=== PATIENT | male | born 1945 | race Caucasian/White ===

== ENCOUNTER 2017-03-21 17:31 | Inpatient (IN) | payer MEDICARE, OTHER ==
[~2017-03-21] VITALS: Ht 180.3 cm; Wt 81.3 kg
--- NOTE | ~2017-03-21 | HP ---
History And Physical [address] [place]. [address] NAME: PRICILLA LICEA III : 43 STATUS : ADM IN [facility]#: [id number] AGE: 71 ADM/REG DATE : 03/21/17 MR#: [id number] REPORT SERV DATE: 03/22/17 DICTATED BY: SEKOU AGUIRRE DATE: 03/21/17 REPORT STATUS : Draft TRANSCRIBED BY: MODL DATE: 03/21/17 DATE OF ADMISSION: 03/21/2017 CRITICAL CARE ADMISSION TIME: 1950 hours, seen in medical ICU bed 8. HISTORY OF PRESENT ILLNESS: The patient is a 71-year-old white male who was transferred from [facility] to our hospital because his physicians are here. According to the patient and the patient's , his symptoms started this morning when he got out of the bed and was somewhat short of breath. He was due for some exams today, a chest x-ray and a pulmonary function test preparation for his AICD placement next week. The reported that he had to be wheelchaired to the PFT lab. After PFTs, he has felt better. The patient reported he had developed a congestive feeling in his chest he normally gets during his heart failure. He did have productive cough of bloody-type sputum. The patient really did not have any significant fevers or chills. His temperature according to his was 96%. Of note, he was recently in [place], [place], where he went to rapid atrial fibrillation, was hospitalized for that, underwent a cardiac cath which revealed an old LAD lesion that was not stented at that time or at this time. He is treated with the goal of getting him on airplane home. This was achieved on 02/10. He came to to the hospital with shortness of breath and what sounds like another heart failure. In [place], apparently he was cardioverted three times and did not have much success with that. PCI was attempted and was unsuccessful. Ejection fraction at that time was 30%, he has not had any pulmonary embolism. PAST MEDICAL HISTORY: Significant for cataracts; hearing loss; dysrhythmias; high cholesterol; hypertension; atrial fibrillation, he has been on Eliquis use for a long time say for about 10 years; obstructive sleep apnea, on home CPAP; previous pneumonia; hemorrhoids in the past prolapse; prostate cancer diagnosed in 2012, no chemo, treated with radiation; nonischemic cardiomyopathy EF of 35% in 2016; sigmoid diverticulosis; GI bleed where he had hematochezia due to rectal telangiectases and was status post colonoscopy with ablation; hematuria treated for radiation bonds, followed by Dr. Schwartz. HOME MEDICATIONS: Included the followin. Tamsulosin 0.4 mg one capsule every day. 2. Lasix 40 mg one tablet every day. 3. Spironolactone 25 mg 12.5 mg by oral route every day. 4. Amiodarone hydrochloride 200 mg one tablet by oral route every day. 5. Ramipril 10 mg one capsule by oral route every day. 6. Coreg 25 mg one tablet by oral route two times a day. 7. Eliquis 5 mg one tablet by oral route two times a day. 8. Amlodipine 10 mg p.o. one tablet daily. 9. Atorvastatin calcium tablets 80 mg one tablet at bedtime. ALLERGIES: NO SIGNIFICANT ALLERGIES NOTED. History And Physical [address] [address] NAME: PRICILLA LICEA III : 43 STATUS : ADM IN [facility]#: [id number] AGE: 71 ADM/REG DATE : 03/21/17 MR#: [id number] REPORT SERV DATE: 03/22/17 DICTATED BY: SEKOU AGUIRRE DATE: 03/21/17 REPORT STATUS : Draft TRANSCRIBED BY: LONG DATE: 03/21/17 SOCIAL HISTORY: He is retired and for 48 years. He had previously worked in [employer] business. Does not smoke or drink. FAMILY HISTORY: Positive for father having coronary artery disease and hypertension. Father in his 80s. Mother with positive hypertension, still living at 95 years old. Two sisters, one has atrial fibrillation. PAST SURGICAL HISTORY: His past surgical history consists of tonsillectomy and cardioversion in 2013, left knee surgery with ligament repair 35 years ago, skin cancer removed from his nose on 07/22/2014, cardiac ablation for atrial fibrillation x2 in 2005, EGD and colonoscopy on 07/31/2014, prostate biopsy for prostate cancer in 2012. REVIEW OF SYSTEMS: Otherwise negative and noncontributory. No fevers or chills at this time. He does have some shortness of breath on exertion. Had marked shortness of breath when he drops into congestive heart failure. Previously, he has had pneumonia. No diabetes. No thyroid disease. PHYSICAL EXAMINATION: VITAL SIGNS: Today, his vital signs currently are stable. His blood pressure is about 120/70, he is off Levophed. Pulse is 70-80 regular, afebrile. GENERAL: The patient is awake, alert, and oriented. HEENT: Head is normocephalic. Sclerae and conjunctivae are clear. NECK: Supple. There is a right IJ in place. CHEST: Decreased breath sounds. Some crackles at the bases. CARDIAC: S1, S2 regular. I could not hear any murmurs. PMI is laterally displaced. ABDOMEN: Soft at this time, nontender, and nonswollen. EXTREMITIES: No clubbing, cyanosis, or edema. NEUROLOGIC: Cranial nerves 2I through 12 are intact. Deep tendon reflexes are normal. IMAGING: His chest x-ray taken this morning well before his admission showed infiltrate in the left lower lobe and some in the right upper lobe. Signs of pulmonary vascular congestion and left parietal atelectasis have improved. LABORATORY DATA: These were taken at [facility] this afternoon. Sodium was 141, potassium 3.5, chloride 107, CO2 of 23, BUN 23, creatinine 1.5, glucose 193. Hemoglobin and hematocrit showed 14.5 and 44.0, white count 69675 white count later 14928. Arterial blood gas at 1700 hours, pH 7.425, pCO2 of 39.2, PO2 of 113.4, was on 75% oxygen on BiPAP. His magnesium was 1.8, calcium 7.9, lactic acid 1.2, alkaline phosphatase 1.0, CPK 0.67, total protein 6.9, albumin 3.2, globulin 3.7. INR 1.3. H and H as noted. Platelet count was 201,000. Blood cultures are pending. Note is made from [facility] stay, put on the septic protocol says his white count is 16,000, thought to possibly have pneumonia. He was not given a 3 L bolus because of his history of heart failure. Placed on BiPAP. Antibiotics Rocephin and Zithromax were started. He required some slight amount of Levophed. Currently, the patient is awake, alert, and oriented, in no acute distress. EKG review pending. History And Physical [address] [address] NAME: PRICILLA LICEA III : 43 STATUS : ADM IN PAT#: [id number] AGE: 71 ADM/REG DATE : 03/21/17 MR#: [id number] REPORT SERV DATE: 03/22/17 DICTATED BY: SEKOU AGUIRRE DATE: 03/21/17 REPORT STATUS : Draft TRANSCRIBED BY: MODL DATE: 03/21/17 IMPRESSION: 1. Hypoxic respiratory failure secondary to systolic heart failure. 2. Hemoptysis secondary to systolic heart failure. 3. Elevated white count. 4. Slightly elevated troponin, probably a type 2 strain. 5. History of prior heart failure and atrial fibrillation with a low ejection fraction. PLAN: Plan will be continue BiPAP. Continue the antibiotics for now. Await blood cultures. Check procalcitonin and BNP level. We will notify fish hatchery supervisor to see the patient in the morning and continue gentle diuresis. Chest x-ray as noted. RP/TONEYL Sekou Aguirre M.D. / [id number] CC: MD Abby Figueroa M.D.
--- NOTE | ~2017-03-21 | IDS ---
Interim Discharge Summary [facility] [address] [place]. [address] NAME: PRICILLA LICEA III : 43 STATUS : ADM IN PAT#: [id number] AGE: 71 ADM/REG DATE : 03/21/17 MR#: [id number] REPORT SERV DATE: 03/25/17 DICTATED BY: CASSY PALAFOX DATE: 03/25/17 REPORT STATUS : Draft TRANSCRIBED BY: MODL DATE: 03/25/17 ADMISSION DATE: 03/21/2017 DISCHARGE DATE: DATE OF INTERIM SUMMARY: 03/25/2017. INTERIM DIAGNOSES: 1. Acute hypoxic respiratory failure. 2. Hospital-acquired pneumonia. 3. Septic shock. 4. Cardiogenic pulmonary edema. 5. Acute on chronic heart failure. 6. Chronic renal failure. 7. Atrial fibrillation with rapid ventricular response. 8. Obstructive sleep apnea. ICU COURSE: Please see dictated H and P for full patient presentation and history. In brief summary, the patient is a 71-year-old white gentleman with a past medical history of chronic systolic heart failure, chronic atrial fibrillation, as well as asthma who was admitted to the hospital with increasing shortness of breath as well as blood tinged sputum several days ago. The patient was scheduled to get an AICD placed next week for his atrial fibrillation, but is hospitalized now and we will have that postponed. The patient initially was felt to have congestive heart failure and was transferred over here after presenting to an outside hospital for further management. On arrival here, the patient appeared clinically to have more of a pneumonia picture than heart failure, and in fact, began having fevers on the night of admission with worsening respiratory failure requiring a broadening of his antibiotics and BiPAP support. 1. Acute hypoxic respiratory failure. At this point, we feel like his respiratory failure has mainly been in part due to likely pneumonia. Sputum cultures have been negative, but his procalcitonin became elevated and he was febrile on arrival here to our facility. He was in the hospital for about four days last month for atrial fibrillation, so I am currently covering him for hospital-acquired pneumonia with Zosyn. He was on vancomycin for several days, but I stopped that yesterday as he has no evidence of MRSA. He remains on antibiotics at this time. He has needed intermittent BiPAP support. He sleeps with it nightly because he does have obstructive sleep apnea. He is also on bronchodilators as he had PFTs recently that showed some moderate airway obstruction. He has no smoking history with no history of COPD, but he does note history of asthma as a child. He is not on bronchodilators at home. The patient was off BiPAP for the most part yesterday, but then yesterday evening had acute episode of worsening shortness of breath following a session with physical therapy. He is placed back on BiPAP and remained on that overnight. This morning, he has been transitioned over to high-flow nasal cannula and states that his breathing feels a little better. Chest x-ray this morning looks fairly dramatically worse with diffuse bilateral airspace disease and bilateral effusions. I suspect that this acute worsening may be secondary to cardiogenic pulmonary edema. I am transitioning him from p.o. Lasix to IV Lasix today in an attempt to improve his diuresis. Again, we used Interim Discharge Summary [address] [address] NAME: PRICILLA LICEA III : 43 STATUS : ADM IN PAT#: [id number] AGE: 71 ADM/REG DATE : 03/21/17 MR#: [id number] REPORT SERV DATE: 03/25/17 DICTATED BY: CASSY PALAFOX DATE: 03/25/17 REPORT STATUS : Draft TRANSCRIBED BY: LONG DATE: 03/25/17 BiPAP support if needed and would have a low threshold to intubate him if his respiratory status worsens. 2. Septic shock. The patient is on Levophed for several days. He has been off that now for over 24 hours. We will watch his blood pressure closely with increased diuresis today. He has also been restarted on his home beta-samanta. 3. Chronic renal failure. The patient's creatinine has remained right around his baseline. We will watch it with his increased diuresis. 4. Atrial fibrillation with rapid ventricular response. Again, patient was scheduled for AICD placement next week. This will be put on hold for now. He was requiring IV amiodarone for atrial fibrillation with RVR, but has since been transitioned over to p.o. amiodarone and is currently rate controlled on that. Cardiology is following along with the patient. He also continues on his beta-samanta and his Aldactone for his chronic heart failure. Currently, holding his JUDITH inhibitor secondary to the fact that he was recently in shock. If his blood pressure remained stable, we can restart this in the next day or two as well. 5. The patient remains in the ICU. He still is quite tenuous and has a high probability of sudden clinically significant or life-threatening deterioration in his condition. The oncoming shade cloth finisher will take over tomorrow. Please call if you have any questions. SRINIVAS/LONG Cassy Palafox MD / [id number] CC: MD Abby Figueroa M.D.
--- NOTE | ~2017-03-21 | DS ---
Discharge Summary [address] [place]. [address] NAME: PRICILLA LICEA III : 43 STATUS : DIS IN PAT#: [id number] AGE: 71 ADM/REG DATE : 03/21/17 MR#: [id number] REPORT SERV DATE: 04/05/17 DICTATED BY: JR. BARAJAS WILLIAM JOHN DATE: 04/04/17 REPORT STATUS : Draft TRANSCRIBED BY: MODL DATE: 04/04/17 ADMISSION DATE: 03/21/2017 DISCHARGE DATE: 04/04/2017 DISCHARGE DIAGNOSES: Include: 1. Healthcare-acquired pneumonia. 2. Acute hypoxic respiratory failure. 3. Septic shock, which is resolved. 4. Chronic kidney disease, stage 3. 5. Atrial fibrillation with rapid ventricular response. 6. Cardiogenic pulmonary edema. 7. Acute on chronic systolic heart failure with ejection fraction 30% to 35%. 8. Obstructive sleep apnea. OPERATIONS, PROCEDURES, AND TREATMENTS: Include: 1. Intensive Care Unit monitoring on BiPAP ventilation, intermittently. 2. Chest x-ray, done 03/22/2017, which showed new left upper extremity PICC line with interval removal of right subclavian with continued bilateral perihilar infiltrates with edema, probable trace pleural effusion. 3. Chest x-ray, done 03/25/2017, which showed increased diffuse bilateral edema and/or infiltrate. 4. Chest x-ray, done 03/26/2017, which showed persistent, but improving venous congestion, probable small bilateral pleural effusions. 5. Chest x-ray, done 03/27/2017, which showed persistent perihilar airspace disease. 6. Chest x-ray, done 03/28/2017, which showed no acute cardiopulmonary disease. 7. Chest x-ray, done 03/29/2017, which showed mild worsening perihilar edema. 8. Chest x-ray, done 03/30/2017, which showed diffuse bilateral edema or infiltrate. 9. Chest x-ray, done 04/01/2017, which showed diffuse bilateral edema. 10.Chest x-ray, done 04/02/2017, showed left basilar infiltrate with small bilateral pleural effusions. 11.Spirometry with DLCO, which showed at least moderate degree of large airway obstruction, possible lung restriction with mild reduction of DLCO. DISCHARGE MEDICATIONS: Include: 1. Apixaban 5 mg orally twice a day. 2. Lipitor 80 mg orally daily. 3. Amiodarone 400 mg orally twice a day for two weeks, then 200 mg twice a day. 4. Coreg 25 mg twice a day. 5. Folate 1 mg orally at bedtime. 6. Flomax 0.4 mg daily. 7. Albuterol high-flow aerosol every four hours while awake. HOSPITAL COURSE: The patient was a 71-year-old male transferred from [facility] on 03/21/2017, to the Intensive Care Unit. According to the patient and his , his symptoms started the morning of presentation when he got out of bed and was somewhat short of breath. He was due for an exam on that day, chest x-ray and pulmonary function studies in Discharge [address] [address] NAME: PRICILLA LICEA III : 43 STATUS : DIS IN PAT#: [id number] AGE: 71 ADM/REG DATE : 03/21/17 MR#: [id number] REPORT SERV DATE: 04/05/17 DICTATED BY: JR. BARAJAS WILLIAM JOHN DATE: 04/04/17 REPORT STATUS : Draft TRANSCRIBED BY: LONG DATE: 04/04/17 preparation for AICD placement the following week. Apparently, he was so short of breath, he had to be taken by wheelchair with a congested feeling like when he has heart failure. Of note, he was recently in [place], [place], where he went into atrial fibrillation with rapid response, was hospitalized, had a catheterization at that time, had an old LAD lesion that was not stented at that time. The goal was to get the patient stable enough to fly back to his home physicians. For details of the initial exam and presentation, please see Dr. Aguirre's excellent dictated history and physical. The patient was admitted to the Intensive Care Unit. He was intermittently on BiPAP ventilation. It was felt his symptoms were a combination of heart failure and pneumonia. The patient completed the course of Zosyn and vancomycin and was slowly diuresed and followed by Cardiology. The plan was for the patient to be discharged to follow up with Dr. Nelson as scheduled for AICD placement. The patient is currently off oxygen. He had an ambulatory desaturation study this morning, which showed no need for oxygen at this time. As the patient's septic shock has resolved, he was on pressor support for some time. As the patient's chronic kidney disease stage 3, this is stable. His BUN and creatinine at discharge are 20 and 1.6 respectively. Regarding atrial fibrillation with rapid response, the patient was placed on high-dose amiodarone load, which will be weaned off until his followup with Dr. Nelson this week. Regarding the obstructive sleep apnea, the patient has CPAP at home and has worn this for many years. The patient will be discharged home today, 04/04/2017. He will follow up with Dr. Nelson as scheduled on 04/07/2017, and will follow up with his primary care physician, Dr. Abby Montoya. For discharge exam and laboratory, please see daily progress note. This discharge took greater than 30 minutes for the patient encounter, coordination of care, and documentation. DISCHARGE DIET: Will be a 2 g sodium, low-cholesterol diet. ACTIVITY: As tolerated. WLORETO/LONG Regan Barajas Jr, MD Discharge Summary [address] [address] NAME: PRICILLA LICEA III : 43 STATUS : DIS IN PAT#: [id number] AGE: 71 ADM/REG DATE : 03/21/17 MR#: [id number] REPORT SERV DATE: 04/05/17 DICTATED BY: JR. BARAJAS WILLIAM JOHN DATE: 04/04/17 REPORT STATUS : Draft TRANSCRIBED BY: LONG DATE: 04/04/17 / [id number] CC: MD Abby Hughes M.D.
--- NOTE | ~2017-03-21 | CN ---
Consultation Report [address] [place]. [address] NAME: PRICILLA LICEA III : 43 STATUS : ADM IN PAT#: [id number] AGE: 71 ADM/REG DATE : 03/21/17 MR#: [id number] REPORT SERV DATE: 03/22/17 DICTATED BY: REGAN ANTHONY DATE: 03/21/17 REPORT STATUS : Draft TRANSCRIBED BY: MODL DATE: 03/21/17 CARDIOLOGY CONSULTATION DATE OF CONSULTATION: 03/21/2017 [facility] PHYSICIAN: Dr. Russo. REASON FOR CONSULTATION: History of congestive heart failure. HISTORY OF PRESENT ILLNESS: Mr. Licea is a 71-year-old man with a history of atrial fibrillation and cardiomyopathy with coronary artery disease. He reported increasing shortness of breath with cough productive of bloody sputum with [facility]. He is found to have pneumonia and sepsis and was transferred here. He is on BiPAP and feeling better. He denied any chest pain or tightness. He had some mild chronic edema, again cough with bloody sputum. Denies any fevers. Reports compliance with his medications, although history is a little bit difficult to obtain with his dyspnea and being on BiPAP. REVIEW OF SYSTEMS: As per the history of present illness. Ten other systems are negative, noncontributory, not available. PAST MEDICAL HISTORY: 1. Atrial fibrillation with previous cardioversions. 2. Cardiomyopathy, variable EF around 35%. 3. Coronary artery disease with reported PCI in an outside facility in January. 4. Hypertension. 5. Hypercholesterolemia. 6. Chronic anticoagulation. FAMILY HISTORY: Positive for heart disease, although not typically early. HOME MEDICINES: Current list is pending. PHYSICAL EXAMINATION: VITAL SIGNS: Heart rate is 87, blood pressure 124/60. GENERAL: The patient is pleasant, elderly white male, comfortable on BiPAP. NECK: Supple. Jugular venous pressure is minimally elevated, on BiPAP. CARDIOVASCULAR: Irregular. Distant heart sounds with coarse breath sounds. No gallop suggested. LUNGS: Coarse breath sounds with crackles mostly on the right upper and lower lobes. ABDOMEN: Soft, nontender, nondistended. EXTREMITIES: Minimal edema. Consultation Report [address] [place]. [address] NAME: PRICILLA LICEA III : 43 STATUS : ADM IN PAT#: [id number] AGE: 71 ADM/REG DATE : 03/21/17 MR#: [id number] REPORT SERV DATE: 03/22/17 DICTATED BY: REGAN ANTHONY DATE: 03/21/17 REPORT STATUS : Draft TRANSCRIBED BY: LONG DATE: 03/21/17 DATA: Labs from outside hospital showed an elevated white count. Creatinine is 1.5. Chest x-ray shows right lower and upper lobe infiltrates with mild vascular congestion. White blood cell count at the outside facility was 15. IMPRESSION: 1. Probable pneumonia with respiratory failure, currently being supported with BiPAP. 2. Atrial fibrillation chronic, on chronic anticoagulation. 3. Chronic congestive heart failure. 4. Chronic kidney disease. 5. Coronary artery disease with history of myocardial infarction. Variable ejection fraction around 35%. 6. Hypertension. 7. Hypercholesterolemia. RECOMMENDATIONS: Mr. Licea really has just gotten here. He is on a BiPAP and he had been on Levophed for pressure support. I do not think this is going to be a primary cardiac event, but we will have to support his cardiac status through his hospitalization. His troponin was borderline elevated, not surprising in the setting of sepsis. We will repeat troponin in the morning along with an EKG. Thank you for this consultation. Please contact me if you have any further questions. I will notify Dr. Russo of his admission. WO/LONG Regan Anthony M.D., Ph.D, F.A.C.C. / [id number] CC: MD Abby Figueroa M.D.
[~2017-03-21 17:31] MED LIST: ALTACE10 MG PO; ASA5GR PO; ASAB PO; CENTRUM TAB1 TAB PO; CIALIS10 MG PO; CINNAMON PO; CINNAMONPO PO; CORDARONE PO; COREG12 PO; COREG25 PO; DILT-XR240 MG PO; ELIQUIS 5 MG TAB5 MG PO; FERROUS SULF325 M1 PO; FIBER TABS PO; FIBERCON PO; FLOMAX4 PO; L40 PO; LAN125 PO; LEVAQUIN750 MG PO; LIPITOR80 MG PO; MINOCIN100 PO; NORV10 PO; PRAVACHOL80 MG; PRAVACHOL80 MG PO; SPIRO25 PO; SYMBICORT 160/41 INH INH; [UNRECOGNIZED DRUG - OTHER]
[2017-03-21] MEDS ORDERED: LIPITOR80 MG PO (22:41)
[2017-03-21] MEDS ORDERED: SPIRO25 PO (22:41)
[2017-03-21] MEDS ORDERED: L40 PO (22:41)
[2017-03-21] MEDS ORDERED: COREG25 PO (22:41)
[2017-03-21] MEDS ORDERED: FLOMAX4 PO (22:41)
[2017-03-21] MEDS ORDERED: ELIQUIS 5 MG TAB5 MG PO (22:42)
[2017-03-21] MEDS ORDERED: CORDARONE PO (22:42)
[2017-03-21] MEDS ORDERED: FIBER PO (22:42)
[2017-03-21] MEDS ORDERED: NORV10 PO (22:42)
[2017-03-21] MEDS ORDERED: ALTACE10 MG PO (22:42)
[2017-03-21] MEDS ORDERED: CINNAMONPO PO (22:42)
[2017-03-21] MEDS ORDERED: BION TEARS OPH (22:43)
[2017-03-22 04:28] LABS: BASOPHILS 0.1 %; BASOPHILS ABSOLUTE 0.01 10/3/uL (0.0-0.16); EOSINOPHILS 0 %; HEMATOCRIT 41.5 % (40.0-51.0); HEMOGLOBIN 13.5 g/dL (13.6-17.8); IMMATURE GRANULOCYTES 0.4 %; IMMATURE GRANULOCYTES ABSOLUTE 0.05 10/3/uL (0.0-0.11); LYMPHOCYTES 3.9 %; LYMPHOCYTES ABSOLUTE 0.45 10/3/uL (0.67-4.30); MANUAL DIFF NO %; MEAN CORPUS HGB CONC 32.5 g/dL (32.0-36.0); MEAN CORPUSCULAR HEMOGLOB 30.1 pg (26.0-34.0); MEAN CORPUSCULAR VOLUME 92.4 fL (80-100); MEAN PLATELET VOLUME 11.7 fL (9.2-13.0); MONOCYTES ABSOLUTE 1.15 10/3/uL (0.21-1.20); NEUTROPHILS 85.6 %; NEUTROPHILS ABSOLUTE 9.89 10/3/uL (2.02-8.40); PLATELET COUNT 213 10/3/uL (150-400); RBC DISTRIBUTION WIDTH 15.8 % (12.0-16.0); RED CELL COUNT 4.49 10/6/uL (4.7-6.1); WHITE BLOOD CELLS 11.6 10/3/uL (4.5-10.5)
[2017-03-22 04:48] LABS: BUN (BLOOD UREA NITROGEN) 21 MG/DL (6-23); CHLORIDE, SERUM 106 MMOL/L (96-112); CO2 (CARBON DIOXIDE) 29 MMOL/L (24-34); CREATININE 1.49 MG/DL (0.70-1.30); GFR AFRICAN AMERICAN 53 ML/MIN (>=60); GFR NON AFRICAN AMERICAN 46 ML/MIN (>=60); POTASSIUM, SERUM 3.3 MMOL/L (3.5-5.3); SODIUM, SERUM 142 MMOL/L (135-148)
[2017-03-22 04:51] LABS: GLUCOSE, SERUM 111 MG/DL (60-99)
[2017-03-22 05:20] LABS: B NATRIURETIC PEPTIDE (BNP) 1305.3 PG/ML (< 100.0)
[2017-03-22 10:12] LABS: GLYCOHEMOGLOBIN (HbA1c) 6.1 % (4.7-6.1)
[2017-03-22 17:29] LABS: BUN (BLOOD UREA NITROGEN) 21 MG/DL (6-23); CALCIUM, SERUM 7.8 MG/DL (8.5-10.4); CHLORIDE, SERUM 106 MMOL/L (96-112); CO2 (CARBON DIOXIDE) 27 MMOL/L (24-34); CREATININE 1.49 MG/DL (0.70-1.30); GFR AFRICAN AMERICAN 53 ML/MIN (>=60); GFR NON AFRICAN AMERICAN 46 ML/MIN (>=60); POTASSIUM, SERUM 3.7 MMOL/L (3.5-5.3); SODIUM, SERUM 140 MMOL/L (135-148)
[2017-03-22 17:30] LABS: GLUCOSE, SERUM 136 MG/DL (60-99); PHOSPHORUS, SERUM 1.6 MG/DL (2.5-4.5)
[2017-03-23 04:24] LABS: BASOPHILS 0.2 %; BASOPHILS ABSOLUTE 0.02 10/3/uL (0.0-0.16); EOSINOPHILS 0 %; HEMOGLOBIN 12.5 g/dL (13.6-17.8); IMMATURE GRANULOCYTES 0.4 %; IMMATURE GRANULOCYTES ABSOLUTE 0.05 10/3/uL (0.0-0.11); LYMPHOCYTES 9.6 %; LYMPHOCYTES ABSOLUTE 1.11 10/3/uL (0.67-4.30); MEAN CORPUS HGB CONC 32.9 g/dL (32.0-36.0); MEAN CORPUSCULAR VOLUME 91.3 fL (80-100); MEAN PLATELET VOLUME 11.4 fL (9.2-13.0); MONOCYTES 11.5 %; MONOCYTES ABSOLUTE 1.33 10/3/uL (0.21-1.20); NEUTROPHILS 78.3 %; NEUTROPHILS ABSOLUTE 9.01 10/3/uL (2.02-8.40); PLATELET COUNT 214 10/3/uL (150-400); RBC DISTRIBUTION WIDTH 16.1 % (12.0-16.0); RED CELL COUNT 4.16 10/6/uL (4.7-6.1); WHITE BLOOD CELLS 11.5 10/3/uL (4.5-10.5)
[2017-03-23 04:29] LABS: MANUAL DIFF NO %
[2017-03-23 04:30] LABS: BUN (BLOOD UREA NITROGEN) 22 MG/DL (6-23); CALCIUM, SERUM 7.8 MG/DL (8.5-10.4); CHLORIDE, SERUM 105 MMOL/L (96-112); CO2 (CARBON DIOXIDE) 30 MMOL/L (24-34); CREATININE 1.43 MG/DL (0.70-1.30); GFR AFRICAN AMERICAN 56 ML/MIN (>=60); GFR NON AFRICAN AMERICAN 48 ML/MIN (>=60); GLUCOSE, SERUM 157 MG/DL (60-99); POTASSIUM, SERUM 3.3 MMOL/L (3.5-5.3); SODIUM, SERUM 140 MMOL/L (135-148)
[2017-03-23 04:31] LABS: PHOSPHORUS, SERUM 2.8 MG/DL (2.5-4.5)
[2017-03-23 10:15] LABS: POTASSIUM, SERUM 3.3 MMOL/L (3.5-5.3)
[2017-03-23 13:20] LABS: PHOSPHORUS, SERUM 1.5 MG/DL (2.5-4.5); POTASSIUM, SERUM 3.8 MMOL/L (3.5-5.3)
[2017-03-23 21:53] LABS: POTASSIUM, SERUM 3.7 MMOL/L (3.5-5.3)
[2017-03-23 21:54] LABS: PHOSPHORUS, SERUM 2.6 MG/DL (2.5-4.5)
[2017-03-24 04:00] LABS: BASOPHILS 0.2 %; BASOPHILS ABSOLUTE 0.02 10/3/uL (0.0-0.16); EOSINOPHILS 0.4 %; EOSINOPHILS ABSOLUTE 0.05 10/3/uL (0.0-0.53); HEMATOCRIT 39.7 % (40.0-51.0); HEMOGLOBIN 12.9 g/dL (13.6-17.8); IMMATURE GRANULOCYTES 0.2 %; IMMATURE GRANULOCYTES ABSOLUTE 0.03 10/3/uL (0.0-0.11); LYMPHOCYTES 6.7 %; LYMPHOCYTES ABSOLUTE 0.81 10/3/uL (0.67-4.30); MEAN CORPUS HGB CONC 32.5 g/dL (32.0-36.0); MEAN CORPUSCULAR HEMOGLOB 29.7 pg (26.0-34.0); MEAN CORPUSCULAR VOLUME 91.3 fL (80-100); MEAN PLATELET VOLUME 11.3 fL (9.2-13.0); MONOCYTES ABSOLUTE 1.08 10/3/uL (0.21-1.20); NEUTROPHILS 83.5 %; NEUTROPHILS ABSOLUTE 10.02 10/3/uL (2.02-8.40); PLATELET COUNT 203 10/3/uL (150-400); RBC DISTRIBUTION WIDTH 16.2 % (12.0-16.0); RED CELL COUNT 4.35 10/6/uL (4.7-6.1)
[2017-03-24 04:02] LABS: MANUAL DIFF NO %
[2017-03-24 04:19] LABS: BUN (BLOOD UREA NITROGEN) 17 MG/DL (6-23); CALCIUM, SERUM 7.9 MG/DL (8.5-10.4); CHLORIDE, SERUM 103 MMOL/L (96-112); CO2 (CARBON DIOXIDE) 27 MMOL/L (24-34); CREATININE 1.16 MG/DL (0.70-1.30); GFR AFRICAN AMERICAN 72 ML/MIN (>=60); GFR NON AFRICAN AMERICAN 62 ML/MIN (>=60); GLUCOSE, SERUM 121 MG/DL (60-99); PHOSPHORUS, SERUM 2.9 MG/DL (2.5-4.5); POTASSIUM, SERUM 3.6 MMOL/L (3.5-5.3); SODIUM, SERUM 138 MMOL/L (135-148)
[2017-03-25 04:13] LABS: BASOPHILS 0.1 %; BASOPHILS ABSOLUTE 0.01 10/3/uL (0.0-0.16); EOSINOPHILS 0.3 %; EOSINOPHILS ABSOLUTE 0.03 10/3/uL (0.0-0.53); HEMATOCRIT 37.7 % (40.0-51.0); HEMOGLOBIN 12.2 g/dL (13.6-17.8); IMMATURE GRANULOCYTES 0.3 %; IMMATURE GRANULOCYTES ABSOLUTE 0.03 10/3/uL (0.0-0.11); LYMPHOCYTES 6.4 %; LYMPHOCYTES ABSOLUTE 0.67 10/3/uL (0.67-4.30); MEAN CORPUS HGB CONC 32.4 g/dL (32.0-36.0); MEAN CORPUSCULAR HEMOGLOB 29.8 pg (26.0-34.0); MEAN CORPUSCULAR VOLUME 92.2 fL (80-100); MEAN PLATELET VOLUME 11.1 fL (9.2-13.0); MONOCYTES 8.8 %; MONOCYTES ABSOLUTE 0.91 10/3/uL (0.21-1.20); NEUTROPHILS 84.1 %; NEUTROPHILS ABSOLUTE 8.75 10/3/uL (2.02-8.40); PLATELET COUNT 246 10/3/uL (150-400); RBC DISTRIBUTION WIDTH 15.9 % (12.0-16.0); RED CELL COUNT 4.09 10/6/uL (4.7-6.1); WHITE BLOOD CELLS 10.4 10/3/uL (4.5-10.5)
[2017-03-25 04:15] LABS: MANUAL DIFF NO %
[2017-03-25 04:25] LABS: BUN (BLOOD UREA NITROGEN) 20 MG/DL (6-23); CALCIUM, SERUM 7.8 MG/DL (8.5-10.4); CHLORIDE, SERUM 104 MMOL/L (96-112); CO2 (CARBON DIOXIDE) 27 MMOL/L (24-34); CREATININE 1.44 MG/DL (0.70-1.30); GFR AFRICAN AMERICAN 55 ML/MIN (>=60); GFR NON AFRICAN AMERICAN 48 ML/MIN (>=60); GLUCOSE, SERUM 108 MG/DL (60-99); SODIUM, SERUM 141 MMOL/L (135-148)
[2017-03-25 04:27] LABS: PHOSPHORUS, SERUM 3.9 MG/DL (2.5-4.5)
[2017-03-25 18:43] LABS: CALCIUM, SERUM 8.1 MG/DL (8.5-10.4); CHLORIDE, SERUM 100 MMOL/L (96-112); CO2 (CARBON DIOXIDE) 27 MMOL/L (24-34); CREATININE 1.36 MG/DL (0.70-1.30); GFR AFRICAN AMERICAN 59 ML/MIN (>=60); GFR NON AFRICAN AMERICAN 51 ML/MIN (>=60); POTASSIUM, SERUM 3.5 MMOL/L (3.5-5.3); SODIUM, SERUM 136 MMOL/L (135-148)
[2017-03-25 18:44] LABS: BUN (BLOOD UREA NITROGEN) 24 MG/DL (6-23); GLUCOSE, SERUM 148 MG/DL (60-99)
[2017-03-26 05:36] LABS: BASOPHILS 0.3 %; BASOPHILS ABSOLUTE 0.02 10/3/uL (0.0-0.16); EOSINOPHILS 2.7 %; EOSINOPHILS ABSOLUTE 0.19 10/3/uL (0.0-0.53); HEMATOCRIT 37.7 % (40.0-51.0); HEMOGLOBIN 12.4 g/dL (13.6-17.8); IMMATURE GRANULOCYTES 0.3 %; IMMATURE GRANULOCYTES ABSOLUTE 0.02 10/3/uL (0.0-0.11); LYMPHOCYTES 11.2 %; MEAN CORPUS HGB CONC 32.9 g/dL (32.0-36.0); MEAN CORPUSCULAR VOLUME 91.1 fL (80-100); MEAN PLATELET VOLUME 11.1 fL (9.2-13.0); MONOCYTES 10.8 %; MONOCYTES ABSOLUTE 0.77 10/3/uL (0.21-1.20); NEUTROPHILS 74.7 %; NEUTROPHILS ABSOLUTE 5.33 10/3/uL (2.02-8.40); PLATELET COUNT 253 10/3/uL (150-400); RBC DISTRIBUTION WIDTH 15.9 % (12.0-16.0); RED CELL COUNT 4.14 10/6/uL (4.7-6.1); WHITE BLOOD CELLS 7.1 10/3/uL (4.5-10.5)
[2017-03-26 05:37] LABS: MANUAL DIFF NO %
[2017-03-26 05:54] LABS: BUN (BLOOD UREA NITROGEN) 25 MG/DL (6-23); CHLORIDE, SERUM 101 MMOL/L (96-112); CO2 (CARBON DIOXIDE) 29 MMOL/L (24-34); CREATININE 1.55 MG/DL (0.70-1.30); GFR AFRICAN AMERICAN 51 ML/MIN (>=60); GFR NON AFRICAN AMERICAN 44 ML/MIN (>=60); GLUCOSE, SERUM 103 MG/DL (60-99); PHOSPHORUS, SERUM 3.3 MG/DL (2.5-4.5); POTASSIUM, SERUM 3.4 MMOL/L (3.5-5.3); SODIUM, SERUM 141 MMOL/L (135-148)
[2017-03-27 04:15] LABS: BASOPHILS 0.4 %; BASOPHILS ABSOLUTE 0.03 10/3/uL (0.0-0.16); EOSINOPHILS 5.9 %; EOSINOPHILS ABSOLUTE 0.44 10/3/uL (0.0-0.53); HEMATOCRIT 36.5 % (40.0-51.0); HEMOGLOBIN 12.1 g/dL (13.6-17.8); IMMATURE GRANULOCYTES 0.1 %; IMMATURE GRANULOCYTES ABSOLUTE 0.01 10/3/uL (0.0-0.11); LYMPHOCYTES 12.3 %; LYMPHOCYTES ABSOLUTE 0.92 10/3/uL (0.67-4.30); MEAN CORPUS HGB CONC 33.2 g/dL (32.0-36.0); MEAN CORPUSCULAR VOLUME 90.3 fL (80-100); MEAN PLATELET VOLUME 10.5 fL (9.2-13.0); MONOCYTES 10.7 %; NEUTROPHILS 70.6 %; NEUTROPHILS ABSOLUTE 5.27 10/3/uL (2.02-8.40); PLATELET COUNT 260 10/3/uL (150-400); RBC DISTRIBUTION WIDTH 15.5 % (12.0-16.0); RED CELL COUNT 4.04 10/6/uL (4.7-6.1); WHITE BLOOD CELLS 7.5 10/3/uL (4.5-10.5)
[2017-03-27 04:17] LABS: MANUAL DIFF NO %
[2017-03-27 04:27] LABS: BUN (BLOOD UREA NITROGEN) 24 MG/DL (6-23); CALCIUM, SERUM 8.2 MG/DL (8.5-10.4); CHLORIDE, SERUM 101 MMOL/L (96-112); CO2 (CARBON DIOXIDE) 29 MMOL/L (24-34); CREATININE 1.27 MG/DL (0.70-1.30); GFR AFRICAN AMERICAN 65 ML/MIN (>=60); GFR NON AFRICAN AMERICAN 56 ML/MIN (>=60); GLUCOSE, SERUM 99 MG/DL (60-99); POTASSIUM, SERUM 3.5 MMOL/L (3.5-5.3); SODIUM, SERUM 140 MMOL/L (135-148)
[2017-03-27 05:07] LABS: PROCALCITONIN 1.13 ng/mL (<0.5)
[2017-03-28 04:05] LABS: BASOPHILS 0.3 %; BASOPHILS ABSOLUTE 0.03 10/3/uL (0.0-0.16); EOSINOPHILS 4.6 %; EOSINOPHILS ABSOLUTE 0.42 10/3/uL (0.0-0.53); HEMATOCRIT 37.2 % (40.0-51.0); HEMOGLOBIN 12.1 g/dL (13.6-17.8); IMMATURE GRANULOCYTES 0.3 %; IMMATURE GRANULOCYTES ABSOLUTE 0.03 10/3/uL (0.0-0.11); LYMPHOCYTES 11.8 %; LYMPHOCYTES ABSOLUTE 1.07 10/3/uL (0.67-4.30); MEAN CORPUS HGB CONC 32.5 g/dL (32.0-36.0); MEAN CORPUSCULAR HEMOGLOB 29.5 pg (26.0-34.0); MEAN CORPUSCULAR VOLUME 90.7 fL (80-100); MEAN PLATELET VOLUME 10.1 fL (9.2-13.0); MONOCYTES 9.3 %; MONOCYTES ABSOLUTE 0.84 10/3/uL (0.21-1.20); NEUTROPHILS 73.7 %; NEUTROPHILS ABSOLUTE 6.69 10/3/uL (2.02-8.40); PLATELET COUNT 287 10/3/uL (150-400); RBC DISTRIBUTION WIDTH 15.6 % (12.0-16.0); WHITE BLOOD CELLS 9.1 10/3/uL (4.5-10.5)
[2017-03-28 04:10] LABS: MANUAL DIFF NO %
[2017-03-28 04:19] LABS: BUN (BLOOD UREA NITROGEN) 21 MG/DL (6-23); CALCIUM, SERUM 8.2 MG/DL (8.5-10.4); CHLORIDE, SERUM 101 MMOL/L (96-112); CO2 (CARBON DIOXIDE) 31 MMOL/L (24-34); CREATININE 1.46 MG/DL (0.70-1.30); GFR AFRICAN AMERICAN 55 ML/MIN (>=60); GFR NON AFRICAN AMERICAN 47 ML/MIN (>=60); GLUCOSE, SERUM 93 MG/DL (60-99); POTASSIUM, SERUM 3.9 MMOL/L (3.5-5.3); SODIUM, SERUM 139 MMOL/L (135-148)
[2017-03-28 05:41] LABS: PROCALCITONIN 0.68 ng/mL (<0.5)
[2017-03-29 05:03] LABS: BASOPHILS 0.2 %; BASOPHILS ABSOLUTE 0.02 10/3/uL (0.0-0.16); EOSINOPHILS 3.7 %; EOSINOPHILS ABSOLUTE 0.33 10/3/uL (0.0-0.53); HEMOGLOBIN 12.1 g/dL (13.6-17.8); IMMATURE GRANULOCYTES 0.4 %; IMMATURE GRANULOCYTES ABSOLUTE 0.04 10/3/uL (0.0-0.11); LYMPHOCYTES 9.3 %; LYMPHOCYTES ABSOLUTE 0.83 10/3/uL (0.67-4.30); MANUAL DIFF NO %; MEAN CORPUS HGB CONC 31.8 g/dL (32.0-36.0); MEAN CORPUSCULAR HEMOGLOB 29.3 pg (26.0-34.0); MEAN PLATELET VOLUME 10.5 fL (9.2-13.0); MONOCYTES 9.4 %; MONOCYTES ABSOLUTE 0.84 10/3/uL (0.21-1.20); NEUTROPHILS ABSOLUTE 6.87 10/3/uL (2.02-8.40); PLATELET COUNT 311 10/3/uL (150-400); RBC DISTRIBUTION WIDTH 15.8 % (12.0-16.0); RED CELL COUNT 4.13 10/6/uL (4.7-6.1); WHITE BLOOD CELLS 8.9 10/3/uL (4.5-10.5)
[2017-03-29 05:16] LABS: BUN (BLOOD UREA NITROGEN) 21 MG/DL (6-23); CALCIUM, SERUM 8.6 MG/DL (8.5-10.4); CHLORIDE, SERUM 101 MMOL/L (96-112); CO2 (CARBON DIOXIDE) 30 MMOL/L (24-34); CREATININE 1.38 MG/DL (0.70-1.30); GFR AFRICAN AMERICAN 58 ML/MIN (>=60); GFR NON AFRICAN AMERICAN 50 ML/MIN (>=60); GLUCOSE, SERUM 82 MG/DL (60-99); PHOSPHORUS, SERUM 3.1 MG/DL (2.5-4.5); POTASSIUM, SERUM 4.2 MMOL/L (3.5-5.3); SODIUM, SERUM 137 MMOL/L (135-148)
[2017-03-30 05:27] LABS: BASOPHILS 0.4 %; BASOPHILS ABSOLUTE 0.03 10/3/uL (0.0-0.16); EOSINOPHILS 3.2 %; EOSINOPHILS ABSOLUTE 0.25 10/3/uL (0.0-0.53); HEMATOCRIT 36.3 % (40.0-51.0); HEMOGLOBIN 11.7 g/dL (13.6-17.8); IMMATURE GRANULOCYTES 0.5 %; IMMATURE GRANULOCYTES ABSOLUTE 0.04 10/3/uL (0.0-0.11); LYMPHOCYTES 10.6 %; LYMPHOCYTES ABSOLUTE 0.84 10/3/uL (0.67-4.30); MANUAL DIFF NO %; MEAN CORPUS HGB CONC 32.2 g/dL (32.0-36.0); MEAN CORPUSCULAR HEMOGLOB 29.5 pg (26.0-34.0); MEAN CORPUSCULAR VOLUME 91.7 fL (80-100); MEAN PLATELET VOLUME 10.3 fL (9.2-13.0); MONOCYTES 9.4 %; MONOCYTES ABSOLUTE 0.74 10/3/uL (0.21-1.20); NEUTROPHILS 75.9 %; NEUTROPHILS ABSOLUTE 6.01 10/3/uL (2.02-8.40); PLATELET COUNT 311 10/3/uL (150-400); RBC DISTRIBUTION WIDTH 15.6 % (12.0-16.0); RED CELL COUNT 3.96 10/6/uL (4.7-6.1); WHITE BLOOD CELLS 7.9 10/3/uL (4.5-10.5)
[2017-03-30 05:39] LABS: BUN (BLOOD UREA NITROGEN) 20 MG/DL (6-23); CALCIUM, SERUM 8.3 MG/DL (8.5-10.4); CHLORIDE, SERUM 106 MMOL/L (96-112); CO2 (CARBON DIOXIDE) 29 MMOL/L (24-34); CREATININE 1.39 MG/DL (0.70-1.30); GFR AFRICAN AMERICAN 58 ML/MIN (>=60); GFR NON AFRICAN AMERICAN 50 ML/MIN (>=60); GLUCOSE, SERUM 86 MG/DL (60-99); PHOSPHORUS, SERUM 2.8 MG/DL (2.5-4.5); SODIUM, SERUM 142 MMOL/L (135-148)
[2017-03-30 05:40] LABS: ALBUMIN 2.2 G/DL (3.5-5.0)
[2017-03-30 06:00] LABS: PROCALCITONIN 0.18 ng/mL (<0.5)
[2017-03-31 04:27] LABS: BASOPHILS 0.4 %; BASOPHILS ABSOLUTE 0.03 10/3/uL (0.0-0.16); EOSINOPHILS 3.4 %; EOSINOPHILS ABSOLUTE 0.25 10/3/uL (0.0-0.53); HEMATOCRIT 36.6 % (40.0-51.0); HEMOGLOBIN 11.7 g/dL (13.6-17.8); IMMATURE GRANULOCYTES 0.5 %; IMMATURE GRANULOCYTES ABSOLUTE 0.04 10/3/uL (0.0-0.11); LYMPHOCYTES 10.1 %; LYMPHOCYTES ABSOLUTE 0.74 10/3/uL (0.67-4.30); MANUAL DIFF NO %; MEAN CORPUSCULAR HEMOGLOB 29.3 pg (26.0-34.0); MEAN CORPUSCULAR VOLUME 91.7 fL (80-100); MEAN PLATELET VOLUME 10.5 fL (9.2-13.0); MONOCYTES 9.3 %; MONOCYTES ABSOLUTE 0.68 10/3/uL (0.21-1.20); NEUTROPHILS 76.3 %; NEUTROPHILS ABSOLUTE 5.59 10/3/uL (2.02-8.40); PLATELET COUNT 313 10/3/uL (150-400); RBC DISTRIBUTION WIDTH 15.5 % (12.0-16.0); RED CELL COUNT 3.99 10/6/uL (4.7-6.1); WHITE BLOOD CELLS 7.3 10/3/uL (4.5-10.5)
[2017-03-31 04:42] LABS: A/G RATIO 0.6 (0.7-1.9); ALBUMIN 2.3 G/DL (3.5-5.0); ALKALINE PHOSPHATASE 93 U/L (45-117); CALCIUM, SERUM 8.3 MG/DL (8.5-10.4); CHLORIDE, SERUM 106 MMOL/L (96-112); CO2 (CARBON DIOXIDE) 29 MMOL/L (24-34); CREATININE 1.31 MG/DL (0.70-1.30); GFR AFRICAN AMERICAN 62 ML/MIN (>=60); GFR NON AFRICAN AMERICAN 54 ML/MIN (>=60); GLOBULIN 3.9 G/DL (2.5-4.1); GLUCOSE, SERUM 92 MG/DL (60-99); POTASSIUM, SERUM 4.1 MMOL/L (3.5-5.3); SGOT(AST) 20 U/L (5-40); SGPT(ALT) 31 U/L (5-65); SODIUM, SERUM 142 MMOL/L (135-148); TOTAL BILIRUBIN 1.5 MG/DL (0-1.2); TOTAL PROTEIN 6.2 G/DL (6.0-8.5)
[2017-03-31 04:48] LABS: BUN (BLOOD UREA NITROGEN) 17 MG/DL (6-23)
[2017-04-01 06:02] LABS: BASOPHILS 0.8 %; BASOPHILS ABSOLUTE 0.05 10/3/uL (0.0-0.16); EOSINOPHILS 2.6 %; EOSINOPHILS ABSOLUTE 0.17 10/3/uL (0.0-0.53); HEMATOCRIT 37.1 % (40.0-51.0); HEMOGLOBIN 11.9 g/dL (13.6-17.8); IMMATURE GRANULOCYTES 0.5 %; IMMATURE GRANULOCYTES ABSOLUTE 0.03 10/3/uL (0.0-0.11); LYMPHOCYTES 10.9 %; LYMPHOCYTES ABSOLUTE 0.72 10/3/uL (0.67-4.30); MEAN CORPUS HGB CONC 32.1 g/dL (32.0-36.0); MEAN CORPUSCULAR HEMOGLOB 29.3 pg (26.0-34.0); MEAN CORPUSCULAR VOLUME 91.4 fL (80-100); MEAN PLATELET VOLUME 10.3 fL (9.2-13.0); MONOCYTES 11.7 %; MONOCYTES ABSOLUTE 0.77 10/3/uL (0.21-1.20); NEUTROPHILS 73.5 %; NEUTROPHILS ABSOLUTE 4.86 10/3/uL (2.02-8.40); PLATELET COUNT 330 10/3/uL (150-400); RBC DISTRIBUTION WIDTH 15.6 % (12.0-16.0); RED CELL COUNT 4.06 10/6/uL (4.7-6.1); WHITE BLOOD CELLS 6.6 10/3/uL (4.5-10.5)
[2017-04-01 06:05] LABS: MANUAL DIFF NO %
[2017-04-01 06:11] LABS: ALBUMIN 2.6 G/DL (3.5-5.0); BUN (BLOOD UREA NITROGEN) 17 MG/DL (6-23); CALCIUM, SERUM 8.9 MG/DL (8.5-10.4); CHLORIDE, SERUM 106 MMOL/L (96-112); CO2 (CARBON DIOXIDE) 29 MMOL/L (24-34); CREATININE 1.29 MG/DL (0.70-1.30); GFR AFRICAN AMERICAN 63 ML/MIN (>=60); GFR NON AFRICAN AMERICAN 55 ML/MIN (>=60); GLUCOSE, SERUM 92 MG/DL (60-99); PHOSPHORUS, SERUM 3.2 MG/DL (2.5-4.5); POTASSIUM, SERUM 3.7 MMOL/L (3.5-5.3); SODIUM, SERUM 142 MMOL/L (135-148)
[2017-04-02 06:50] LABS: BASOPHILS 0.5 %; BASOPHILS ABSOLUTE 0.03 10/3/uL (0.0-0.16); EOSINOPHILS 2.1 %; EOSINOPHILS ABSOLUTE 0.14 10/3/uL (0.0-0.53); HEMATOCRIT 35.6 % (40.0-51.0); HEMOGLOBIN 11.4 g/dL (13.6-17.8); IMMATURE GRANULOCYTES 0.6 %; IMMATURE GRANULOCYTES ABSOLUTE 0.04 10/3/uL (0.0-0.11); LYMPHOCYTES 16.2 %; LYMPHOCYTES ABSOLUTE 1.06 10/3/uL (0.67-4.30); MEAN CORPUSCULAR HEMOGLOB 29.3 pg (26.0-34.0); MEAN CORPUSCULAR VOLUME 91.5 fL (80-100); MEAN PLATELET VOLUME 9.9 fL (9.2-13.0); MONOCYTES 10.7 %; NEUTROPHILS 69.9 %; NEUTROPHILS ABSOLUTE 4.57 10/3/uL (2.02-8.40); PLATELET COUNT 309 10/3/uL (150-400); RBC DISTRIBUTION WIDTH 15.6 % (12.0-16.0); RED CELL COUNT 3.89 10/6/uL (4.7-6.1); WHITE BLOOD CELLS 6.5 10/3/uL (4.5-10.5)
[2017-04-02 06:56] LABS: MANUAL DIFF NO %
[2017-04-02 06:59] LABS: ALBUMIN 2.5 G/DL (3.5-5.0); BUN (BLOOD UREA NITROGEN) 17 MG/DL (6-23); CALCIUM, SERUM 8.4 MG/DL (8.5-10.4); CHLORIDE, SERUM 104 MMOL/L (96-112); CO2 (CARBON DIOXIDE) 31 MMOL/L (24-34); CREATININE 1.32 MG/DL (0.70-1.30); GFR AFRICAN AMERICAN 62 ML/MIN (>=60); GFR NON AFRICAN AMERICAN 53 ML/MIN (>=60); GLUCOSE, SERUM 90 MG/DL (60-99); PHOSPHORUS, SERUM 3.6 MG/DL (2.5-4.5); POTASSIUM, SERUM 3.4 MMOL/L (3.5-5.3); SODIUM, SERUM 141 MMOL/L (135-148)
[2017-04-03 05:19] LABS: BUN (BLOOD UREA NITROGEN) 18 MG/DL (6-23); CALCIUM, SERUM 8.2 MG/DL (8.5-10.4); CHLORIDE, SERUM 104 MMOL/L (96-112); CO2 (CARBON DIOXIDE) 30 MMOL/L (24-34); CREATININE 1.57 MG/DL (0.70-1.30); GFR AFRICAN AMERICAN 50 ML/MIN (>=60); GFR NON AFRICAN AMERICAN 43 ML/MIN (>=60); GLUCOSE, SERUM 83 MG/DL (60-99); POTASSIUM, SERUM 3.7 MMOL/L (3.5-5.3); SODIUM, SERUM 141 MMOL/L (135-148)
[2017-04-04 05:45] LABS: ALBUMIN 2.6 G/DL (3.5-5.0); BUN (BLOOD UREA NITROGEN) 20 MG/DL (6-23); CALCIUM, SERUM 8.3 MG/DL (8.5-10.4); CHLORIDE, SERUM 104 MMOL/L (96-112); CO2 (CARBON DIOXIDE) 30 MMOL/L (24-34); CREATININE 1.58 MG/DL (0.70-1.30); GFR AFRICAN AMERICAN 50 ML/MIN (>=60); GFR NON AFRICAN AMERICAN 43 ML/MIN (>=60); GLUCOSE, SERUM 84 MG/DL (60-99); PHOSPHORUS, SERUM 3.3 MG/DL (2.5-4.5); POTASSIUM, SERUM 3.5 MMOL/L (3.5-5.3); SODIUM, SERUM 142 MMOL/L (135-148)
[2017-04-04] MEDS ORDERED: FOLIC PO (10:37)
[2017-04-04] MEDS ORDERED: ALBUTEROL HFA INH (10:37)
== END 2017-04-04 11:53 | disposition home or self-care (01) | DRG 871 ==
LOC: ENRESERVDT → ENRESERVTM → ENRESERV → ENPENDDIS 19:18 → MIC 19:18 → 1SO 19:18 → MIC 03-25 21:21 → 1SO 03-31 16:31
PROVIDERS: Internal Medicine; Internal Medicine Critical Care Medicine; Internal Medicine Pulmonary Disease
PROC: 5A09457 Assistance with Respiratory Ventilation, 24-96 Consecutive Hours, Continuous Positive Airway Pressure (ICD-10-PCS; principal; 2017-03-21)
PROC: 02HV33Z Insertion of Infusion Device into Superior Vena Cava, Percutaneous Approach (ICD-10-PCS; 2017-03-22)
DX: A41.9 Sepsis, unspecified organism (principal); R65.21 Severe sepsis with septic shock; J96.01 Acute respiratory failure with hypoxia; I50.23 Acute on chronic systolic (congestive) heart failure; J18.9 Pneumonia, unspecified organism; N18.3 Chronic kidney disease, stage 3 (moderate); I48.0 Paroxysmal atrial fibrillation; I42.8 Other cardiomyopathies; J44.0 Chronic obstructive pulmonary disease with (acute) lower respiratory infection; I49.3 Ventricular premature depolarization; J44.9 Chronic obstructive pulmonary disease, unspecified; I12.9 Hypertensive chronic kidney disease with stage 1 through stage 4 chronic kidney disease, or unspecified chronic kidney disease; N18.9 Chronic kidney disease, unspecified; E78.00 Pure hypercholesterolemia, unspecified; I25.10 Atherosclerotic heart disease of native coronary artery without angina pectoris; G47.33 Obstructive sleep apnea (adult) (pediatric); I25.2 Old myocardial infarction; Z79.01 Long term (current) use of anticoagulants; Z79.899 Other long term (current) drug therapy
CPT/HCPCS: 36415; 36569; 36600; 71010; 71020; 80048; 80053; 80069; 82805; 83036; 83605; 83735; 83880; 84100; 84132; 84145; 84484; 85025; 87040; 87070; 87205; 87641; 93005; 94010; 94640; 94660; 94667; 94668; 94729; 96523; 97116-GP; 97162-GP; 97530-GP; A9270-GY; C1751; G8978-CK-GP; G8979-CI-GP; J0282; J0456; J2543; J3370; J3475; P9047